=== PATIENT | female | born 1995 | race Caucasian/White ===

== ENCOUNTER 2025-04-06 05:57 | Day surgery (SDC) | payer BC, SELFPAY ==
[2025-04-03 10:33] VITALS: BMI 41.3
--- NOTE | 2025-04-05 06:54 | EXP.HP ---
History of Present Illness *Admission Date: 04/06/25 *Reason for visit:: Personal history of normal colon polyp and family history *History of present illness: Mrs. Wharton is a pleasant 29-year-old female who is here for screening colonoscopy secondary to a larger tubular adenoma in her 20s and family history (aunt with colon cancer in her 20s-30s). The examination is deemed medically necessary for screening colonoscopy. The patient has been seen, interviewed and examined prior to the procedure by both myself and the anesthesia provider. [facility] Disclaimer: The information contained in this section may have been updated after the patient was seen, as this information can be updated by other users. Medical History Brain tumor IBS (irritable bowel syndrome) Internal hemorrhoids Common variable immunodeficiency Surgical History H/O excision of tumor of brain meninges H/O colonoscopy with polypectomy History of History of tonsillectomy and adenoidectomy Family History Family/Other Breast cancer Family/Other Colon cancer Breast cancer Grandmother History of kidney cancer Social History Smoking Status: Never smoker alcohol intake: current alcohol intake frequency: holidays/special occasions only substance use type: denies use current occupational status: employed Travel in the last 8 weeks?: None Have you lived/traveled outside [place] in past 30 days?: No Contact w/someone who lives/traveled outside US past 30 days?: No Exposure to someone with infectious disease in past 14 days?: No Do you have a fever (greater than 100.4 F or 38 C)?: No Have you tested positive for COVID-19?: No Exposed to someone with COVID-19 in past 14 days?: No Do you have a sore throat?: No Do you have a cough?: No Do you have any weakness?: No Are you experiencing any nausea/vomitting?: No Do you have any diarrhea?: No Are you experiencing any unusual bleeding?: No Do you have any muscle aches/pain?: No Do you have any abdominal pain?: No Are you experiencing loss of taste or smell?: No Review of Systems Review of Systems Review of systems (narrative): Negative *Cardiovascular Comments: Negative *Gastrointestinal Comments: Negative *Genitourinary Comments: Negative *Musculoskeletal Comments: Negative *Neurologic Comments: Negative Meds Home Medications and Allergies Home Medications ?Medication ?Instructions ?Recorded ?Confirmed ?Type acetaminophen 325 mg capsule 325 mg PO QID PRN 09/08/24 09/08/24 History (Tylenol) cholecalciferol (vitamin D3) 125 125 mcg PO DAILY 09/08/24 09/08/24 History mcg (5,000 unit) capsule naproxen sodium 220 mg tablet 220 mg PO BID PRN 09/08/24 09/08/24 History (Aleve) sod picosulf 10 mg-magnes 3.5 175 ml PO DAILY Bowel Prep 2 doses 03/23/25 Rx gram-citric 12 gram/175 mL oral #350 mL solution (Clenpiq) New Prescriptions to Start Prescriptions: Allergies Allergy/AdvReac Type Severity Reaction Status Date / Time ferrous sulfate Allergy Hives Verified 09/08/24 11:03 Exam Data for Last 24 hours I & O for Last 24 hours: Intake & Output 04/02/25 04/03/25 04/04/25 04/05/25 23:59 23:59 23:59 23:59 Weight 264 lb *Routine HEENT Exam Head: Present normocephalic Eye: Present EOMI and PERRL ENT: Present mucous membranes moist *Routine Neck Exam Neck: Present supple *Routine Respiratory Exam Respiratory: Present CTA bilaterally *Routine Cardiovascular Exam Cardiovascular: Present RRR *Routine Abdominal Exam Abdominal: Present soft and normoactive bowel sounds; Absent tenderness *Routine Rectal Exam Rectal:: deferred *Routine Genitalia Exam Genitalia:: deferred *Routine Extremities Exam Extremities: Absent cyanosis, clubbing or edema *Routine Skin Exam Skin: Present warm; Absent rash *Routine Neurological Exam Neurological: Present alert and oriented X3 Assessment and Plan *Assessment and plan (1) History of adenomatous polyp of colon: Status: Acute Category: Medical Code(s): Z86.0101 - Personal history of adenomatous and serrated colon polyps (2) Family history of colon cancer: Status: Acute Category: Medical Code(s): Z80.0 - Family history of malignant neoplasm of digestive organs Plan A/P: 1. Personal history of adenomatous polyp in her 20s and family history of colon cancer is the preprocedural diagnosis. The patient will be anesthetized/sedated using MAC sedation. The patient has been seen and examined. Cardiac and lung assessment prior to the examination is stable. Proceed with planned screening colonoscopy.
[2025-04-06 06:29] VITALS: BP 131/79; PULSE 92; RESP 18; TEMP 36.2; O2SAT 97; BMI 41.3
[2025-04-06 06:37] LABS: Urine Pregnancy, HCG Qual. Negative (Negative)
[2025-04-06] MEDS: LACTATED RINGERS 1000ML 1,000 ML 50 ML IV (06:41)
[2025-04-06 06:47] LABS: POC Glucose,Bedside 161 (70-110)
--- NOTE | 2025-04-06 07:04 | P.PNANES_ITS ---
[facility] Disclaimer: The information contained in this section may have been updated after the patient was seen, as this information can be updated by other users. Medical History Brain tumor IBS (irritable bowel syndrome) Internal hemorrhoids Common variable immunodeficiency Surgical History H/O excision of tumor of brain meninges H/O colonoscopy with polypectomy History of History of tonsillectomy and adenoidectomy Family History Family/Other Breast cancer Family/Other Colon cancer Breast cancer Grandmother History of kidney cancer Social History Smoking Status: Never smoker alcohol intake: current alcohol intake frequency: holidays/special occasions only substance use type: denies use current occupational status: employed Travel in the last 8 weeks?: None Have you lived/traveled outside US in past 30 days?: No Contact w/someone who lives/traveled outside US past 30 days?: No Exposure to someone with infectious disease in past 14 days?: No Do you have a fever (greater than 100.4 F or 38 C)?: No Have you tested positive for COVID-19?: No Exposed to someone with COVID-19 in past 14 days?: No Do you have a sore throat?: No Do you have a cough?: No Do you have any weakness?: No Are you experiencing any nausea/vomitting?: No Do you have any diarrhea?: No Are you experiencing any unusual bleeding?: No Do you have any muscle aches/pain?: No Do you have any abdominal pain?: No Are you experiencing loss of taste or smell?: No [facility] Anesthesia Checklist Patient Identification Patient Identification: Arm Band and Verbal (Name & ) Structural Data Admitted From: Home Planned Operative Procedure/s: colonoscopy Verified Documents: Surgical Consent NPO Status Verified Time NPO: 00:00 Chart Verification Results Verified: None Additional verifications Anesthesia Reactions: No Airway Assessment Mallampati Score:: Class II C-Spine Mobility Assessed: Yes TMJ Mobility Assessed: Yes Dentition: Good Dentition Neurological Assessment Level of Consciousness: Awake, Alert and Appropriate Hx Seizures: No Numbness or tingling in extremities: No Anesthesia Plan Anesthesia Risk discussed: Yes Anesthesia Plan: Verified ASA Class: II Anesthesia Type: MAC
--- NOTE | 2025-04-06 07:33 | P.PCN_ITS ---
[facility] Procedure Note Date: 04/06/25 Time: 07:55 Procedure Note:: Colonoscopy Procedure Report: Colonoscopy with monopolar ablation/coagulation of internal hemorrhoids Endoscopist: Arturo Marin II, MD Referring physician: Keo Nguyen MD, [address] [facility] [id number], [place] [address] Date of Procedure: April 06, 2025 Equipment: Olympus [id number] adult colonoscope Sedation: MAC sedation Indication: Mrs. Wharton is a pleasant 29-year-old female who is here for screening colonoscopy secondary to a larger tubular adenoma in her 20s and family history (aunt with colon cancer in her 20s-30s). The patient reports no change in her bowel habits or unintentional weight loss. She does get some right lower quadrant abdominal discomfort intermittently that started in January 2025 and had a small right ovarian cyst. 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 She does get some bloating and gassiness. She has occasional spotting of blood on the tissue from hemorrhoids. Procedure: Prior to the procedure, a history and physical exam was performed, and patient's medications and allergies were reviewed. The risks, benefits and alternatives of the sedation and procedure were discussed with the patient. All questions were answered and informed consent was obtained. The patient was brought to the procedure room. Patient identification and proposed procedure were verified by the physician and the nurse. The patient was placed in a left lateral decubitus position and the scope was passed under direct vision. Throughout the procedure, the patient's blood pressure, pulse, and oxygen saturations were monitored continuously. The colonoscopy was accomplished without difficulty. The patient tolerated the procedure well. Findings: On digital rectal examination there was normal rectal tone. There were no external hemorrhoids. The colonoscope was introduced through the anal canal to the rectum and advanced to the cecum. The ileocecal valve and appendiceal orifice were identified. The scope was advanced a short distance into the ileum which appeared grossly normal. The scope was then withdrawn into the colon. The cecum, ascending, transverse, descending, sigmoid and rectum were grossly normal. There were no mucosal abnormalities identified. Upon retroflexion within the rectum there were grade 2 internal hemorrhoids. The preparation was excellent throughout with L[place] Preparation Score of 9. The cecal time was 11 minutes. Impression: 1. Normal colonoscopy with intubation of the terminal ileum 2. Grade 2 internal hemorrhoids status post monopolar ablation/coagulation Plan: Based upon her history of a larger adenomatous polyp in her 20s and family history, I would recommend repeat surveillance colonoscopy again in 5 years. I do suspect that some of her right lower quadrant abdominal pain is functional abdominal pain from obstipation. I will discuss with the patient and family.
[2025-04-06 07:56] VITALS: BP 133/73; PULSE 85; RESP 17; TEMP 36.4; O2SAT 96
[2025-04-06 08:06] VITALS: BP 127/68; PULSE 81; RESP 17; O2SAT 98
[2025-04-06 08:16] VITALS: BP 120/76; PULSE 85; RESP 17; O2SAT 95
[2025-04-06 08:26] VITALS: BP 126/72; PULSE 75; RESP 17; O2SAT 96
== END 2025-04-06 08:45 | disposition home or self-care (01) ==
PROVIDERS: PCP Internal Medicine; Visit Provider Internal Medicine Gastroenterology
PROC: 0DJD8ZZ Inspection of Lower Intestinal Tract, Via Natural or Artificial Opening Endoscopic (ICD-10-PCS; CPT 45378; principal; 2025-04-06 07:30)
DX: Z12.11 Encounter for screening for malignant neoplasm of colon (principal); K64.1 Second degree hemorrhoids; K58.9 Irritable bowel syndrome, unspecified; R73.9 Hyperglycemia, unspecified; Z86.0101 Personal history of adenomatous and serrated colon polyps; Z80.0 Family history of malignant neoplasm of digestive organs
CPT/HCPCS: 45388; 81025; 82962; J2003; J2704; J7120